=== PATIENT | female | born 1990 | race African-American/Black ===

== ENCOUNTER 2016-06-22 22:27 | Emergency (ER) | payer MEDICAID ==
[~2016-06-22] VITALS: Ht 162.6 cm; Wt 98.0 kg
[~2016-06-22 22:27] MED LIST: none reported
[2016-06-22] MEDS ORDERED: ONDANSETRON 4MG ODT PO ONE (23:30)
[2016-06-22] MEDS ORDERED: HYDROCODONE/ACETAMINOPHEN 5/325MG TABLET PO ONE (23:30)
[2016-06-23] MEDS ORDERED: MORPHINE SULFATE 10 MG/ML CPJ IM ONE (00:30)
[2016-06-23] MEDS ORDERED: MORPHINE SULFATE 4 MG/ML CPJ (NOT FOR IM USE) IV ONE ×2 (00:45→04:15)
[2016-06-23] MEDS ORDERED: ONDANSETRON HCL 4MG/2ML VIAL IV ONE ×2 (00:45→04:15)
[2016-06-23] MEDS ORDERED: SODIUM CHLORIDE 0.9% 1,000 ML IV ONE (00:45)
[2016-06-23] MEDS ORDERED: KETAMINE HCL 50 MG/ML 10ML IV ONE (01:15)
[2016-06-23] MEDS ORDERED: PROPOFOL 200MG/20ML VIAL IV ONE (01:15)
[2016-06-23 04:56] VITALS: BP 121/76
== END 2016-06-23 05:00 | disposition home or self-care (01) ==
LOC: ER 22:30
DX: S82.841A Displaced bimalleolar fracture of right lower leg, initial encounter for closed fracture (principal); W01.0XXA Fall on same level from slipping, tripping and stumbling without subsequent striking against object, initial encounter; Y93.01 Activity, walking, marching and hiking; Y99.8 Other external cause status; Y92.89 Other specified places as the place of occurrence of the external cause; Z98.890 Other specified postprocedural states
CPT/HCPCS: 27810; 73610; 81025; 96361; 96374; 96375; 96376; 99152; 99285; J2270; J2405; J3490; J7030; Q0162; Z7610; J2704